=== PATIENT | female | born 1990 | race Caucasian/White ===

== ENCOUNTER 2019-11-18 19:46 | Emergency (ER) | payer BC, OTHER ==
--- NOTE | 2019-11-18 20:18 | EDM.PDOC ---
ED HPI GENERAL MEDICAL PROBLEM - General Chief Complaint: ENT Problem Stated Complaint: SORE THROAT DIFFICULTY SWALLOWING Time Seen by Provider: 11/18/19 19:47 Source of Information: Reports: Patient History Limitations: Reports: No Limitations - History of Present Illness INITIAL COMMENTS - FREE TEXT/NARRATIVE: HISTORY AND PHYSICAL: History of present illness: Patient is a 29-year-old female who presents to the ED today with concern of sore throat over the past 2 to 3 days. Patient states that she does have pain with swallowing but has been able to do so and has been able to eat and drink today. Patient states that she has felt feverish but has not checked a temperature at home and is also had a slight cough and a runny nose but these have improved but her throat pain has not according to patient. Patient denies fever, chills, chest pain, shortness of breath, or cough. Denies headache, neck stiff ness, change in vision, syncope, or near syncope. Denies nausea, vomiting, abdominal pain, diarrhea, constipation, or dysuria. Has not noted any blood in urine or stool. Patient has been eating and drinking appropriately. Review of systems: As per history of present illness and below otherwise all systems reviewed and negative. Past medical history: As per history of present illness and as reviewed below otherwise noncontributory. Surgical history: As per history of present illness and as reviewed below otherwise noncontributory. Social history: See social history for further information Family history: As per history of present illness and as reviewed below otherwise noncontributory. Physical exam: General: Patient is alert, oriented, and in no acute distress. Patient sitting comfortably on exam table. HEENT: Atraumatic, normocephalic, pupils equal and reactive bilaterally, negative for conjunctival pallor or scleral icterus, mucous membranes moist, TMs normal bilaterally, throat is moderately erythematous with small amount of white exudate on mildly enlarged but equal tonsils, uvula midline, neck supple, nontender, trachea midline. No drooling or trismus noted. No meningeal signs. No hot potato voice noted. Lungs: Clear to auscultation, breath sounds equal bilaterally, chest nontender. Heart: S1S2, regular rate and rhythm without overt murmur Abdomen: Soft, nondistended, nontender. Negative for masses or hepatosplenomegaly. Negative for costovertebral tenderness. Pelvis: Stable nontender. Genitourinary: Deferred. Rectal: Deferred. Skin: Intact, warm, dry. No lesions or rashes noted. Extremities: Atraumatic, negative for cords or calf pain. Neurovascular unremarkable. Neuro: Awake, alert, oriented. Cranial nerves II through XII unremarkable. Cerebellum unremarkable. Motor and sensory unremarkable throughout. Exam nonfocal. Notes: Patient does have a positive strep screen but no indications of abscess at this time. She is speaking in clear sentences, without trismus or drooling, and tonsils are mildly enlarged but equal and uvula midline. She does remain tachycardic around 120s but declines any therapeutics or further diagnostics. All risks vs benefits discussed with patient and expresses understanding. Signs and symptoms that would prompt return to the ED were thoroughly discussed with patient and expresses understanding. Discussed importance for follow-up with a primary care provider. Voices understanding and is agreeable to plan of care. Denies any further questions or concerns at this time. Diagnostics: COVID-19, Strep Therapeutics: None Prescription: Amoxicillin Impression: Strep pharyngitis Plan: 1. Take medication as prescribed. You can alternate ibuprofen and Tylenol as directed for pain and discomfort. 2. Follow-up with a primary care provider as discussed. Return to the ED as needed and as discussed. Definitive disposition and diagnosis as appropriate pending reevaluation and review of above. 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: Musculoskeletal History: Reports: None Neurological History: Reports: None Psychiatric History: Reports: None Endocrine/Metabolic History: Reports: None Hematologic History: Reports: None Immunologic History: Reports: None Oncologic (Cancer) History: Reports: None Dermatologic History: Reports: None - Infectious Disease History Infectious Disease History: Reports: None - Past Surgical History Head Surgeries/Procedures: Reports: None Female Surgical History: Reports: Section Social & Family History - Tobacco Use Smoking Status *Q: Never Smoker - Recreational Drug Use Recreational Drug Use: No ED ROS GENERAL - Review of Systems Review Of Systems: Comprehensive ROS is negative, except as noted in HPI. ED EXAM, GENERAL - Physical Exam Exam: See Below (see dictation) Course - Vital Signs Last Recorded V/S: Last Vital Signs Temp 99.8 F 11/18/19 20:06 Pulse 144 H 11/18/19 20:06 Resp 26 H 11/18/19 20:06 BP 122/84 11/18/19 20:06 Pulse Ox 96 11/18/19 20:06 - Orders/Labs/Meds Labs: Laboratory Tests 11/18/19 Range/Units 20:20 COVID-19 (ANJEL) NEGATIVE (NEGATIVE) Departure - Departure Time of Disposition: 20:55 Disposition: Home, Self-Care 01 Clinical Impression: Strep pharyngitis - Discharge Information Prescriptions: Amoxicillin 1,000 mg PO DAILY 10 Days #20 tablet Instructions: Strep Throat, Adult, [id number] Referrals: PCP,None [Primary Care Provider] - Forms: ED Department Discharge Additional Instructions: The following information is given to patients seen in the emergency department who are being discharged to home. This information is to outline your options for follow-up care. We provide all patients seen in our emergency department with a follow-up referral. The need for follow-up, as well as the timing and circumstances, are variable depending upon the specifics of your emergency department visit. If you don't have a primary care physician on staff, we will provide you with a referral. We always advise you to contact your personal physician following an emergency department visit to inform them of the circumstance of the visit and for follow-up with them and/or the need for any referrals to a consulting specialist. The emergency department will also refer you to a specialist when appropriate. This referral assures that you have the opportunity for follow-up care with a specialist. All of these measure are taken in an effort to provide you with optimal care, which includes your follow-up. Under all circumstances we always encourage you to contact your private physician who remains a resource for coordinating your care. When calling for follow-up care, please make the office aware that this follow-up is from your recent emergency room visit. If for any reason you are refused follow-up, please contact the [facility] Emergency Department at and asked to speak to the emergency department charge nurse. [facility] [address] [place] [address] [facility] [address] [place] [id number] 1. Take medication as prescribed. You can alternate ibuprofen and Tylenol as directed for pain and discomfort. 2. Follow-up with a primary care provider as discussed. Return to the ED as needed and as discussed. Sepsis Event Note (ED) - Evaluation Sepsis Screening Result: No Definite Risk - Focused Exam Vital Signs: Vital Signs Temp Pulse Resp BP Pulse Ox 11/18/19 20:06 99.8 F 144 H 26 H 122/84 96
== END 2019-11-18 21:30 | disposition home or self-care (01) ==
LOC: MW.ED 19:46
DX: J02.0 Streptococcal pharyngitis (principal); J45.909 Unspecified asthma, uncomplicated; Z20.828 Contact with and (suspected) exposure to other viral communicable diseases
CPT/HCPCS: 87880-QW; 99283; U0002

== ENCOUNTER 2020-03-20 09:31 | Inpatient (IN) | payer BC ==
[2020-03-20] MEDS ORDERED: Oxytocin/0.9 % Sodium Chloride 30 UNIT/500 ML BAG IV SCH (09:45)
[2020-03-20] MEDS ORDERED: Sodium Chloride 0.9% 2.5 ML Syringe FLUSH PRN (09:45)
[2020-03-20] MEDS ORDERED: Citric Acid/Sodium Citrate Solution 30 ML Cup PO ONE (09:45)
[2020-03-20] MEDS ORDERED: Sodium Chloride 0.9% 10 ML Syringe FLUSH PRN (09:45)
[2020-03-20] MEDS ORDERED: Sodium Chloride 0.9% 10 ML SDV IV PRN (09:45)
[2020-03-20] MEDS ORDERED: Lactated Ringers 1,000 ML IV SCH ×2 (09:45→12:15)
--- NOTE | 2020-03-20 10:08 | PCM.PREANE ---
Preanesthetic Assessment - Procedure Proposed Procedure: (repeat). Admitted dilated to 5cm. All questions answered and concerns addressed, explained spinal risks/benefits/alternatives/anesthesia coverage discussed. consent signed with RN witness. - Anesthesia/Transfusion/Family Hx Anesthesia History: Prior Anesthesia Without Reaction (Denies previous surgery other than CS. Spinal anesthetic with no complications (other than shivering) per pt.) Family History of Anesthesia Reaction: No Transfusion History: No Prior Transfusion(s) Additional History: History of asthma. Mild and rare per pt. Primarily exercise, and occasionally stress-induced. - Review of Systems General: No Symptoms Pulmonary: No Symptoms Cardiovascular: No Symptoms Gastrointestinal: No Symptoms Neurological: No Symptoms Other: Reports: None - Physical Assessment NPO Status Date: 03/19/20 NPO Status Time: 22:00 ASA Class: 2E Mental Status: Alert & Oriented x3 Dentition: Reports: Normal Dentition Thyro-Mental Finger Breadths: 3 Mouth Opening Finger Breadths: 3 ROM/Head Extension: Full Lungs: Normal Respiratory Effort Cardiovascular: Regular Rate, Regular Rhythm - Allergies Allergies/Adverse Reactions: Allergies Allergy/AdvReac Type Severity Reaction Status Date / Time No Known Allergies Allergy Verified 11/18/19 20:09 - Acknowledgements Anesthesia Type Planned: Spinal Pt an Appropriate Candidate for the Planned Anesthesia: Yes Alternatives and Risks of Anesthesia Discussed w Pt/Guardian: Yes Pt/Guardian Understands and Agrees with Anesthesia Plan: Yes PreAnesthesia Questionnaire - Past Health History Medical/Surgical History: Denies Medical/Surgical History HEENT History: Reports: None Cardiovascular History: Reports: None Respiratory History: Reports: Asthma Gastrointestinal History: Reports: None Genitourinary History: Reports: None 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: Musculoskeletal History: Reports: None Neurological History: Reports: None Psychiatric History: Reports: None Endocrine/Metabolic History: Reports: None Hematologic History: Reports: None Immunologic History: Reports: None Oncologic (Cancer) History: Reports: None Dermatologic History: Reports: None - Infectious Disease History Infectious Disease History: Reports: None - Past Surgical History Head Surgeries/Procedures: Reports: None Female Surgical History: Reports: Section - HOME MEDS Home Medications: Home Meds Amoxicillin 1,000 mg PO DAILY 10 Days #20 tablet 11/18/19 [Rx] - CURRENT (IN HOUSE) MEDS Current Meds: Current Medications Oxytocin/Sodium Chloride (Oxytocin 30 Unit/500 Ml-Ns) 30 unit in 500 mls @ 250 mls/hr IV TITRATE VIKTOR Lactated Ringer's (Ringers, Lactated) 1,000 mls @ 500 mls/hr IV BOLUS VIKTOR Sodium Chloride (Saline Flush) 10 ml FLUSH ASDIRECTED PRN PRN Reason: Keep Vein Open Sodium Chloride (Saline Flush) 2.5 ml FLUSH ASDIRECTED PRN PRN Reason: Keep Vein Open Sodium Chloride (Normal Saline) 10 ml IV ASDIRECTED PRN PRN Reason: IV Use Discontinued Medications Citric Acid/Sodium Citrate (Bicitra Solution) 30 ml PO ONETIME ONE Stop: 03/20/20 09:46
[2020-03-20] MEDS ORDERED: ceFAZolin/Dextrose,Iso-Osmotic 2 GM/50 ML Duplex Bag IV ONE (10:12)
[2020-03-20] MEDS ORDERED: Morphine PF 10 MG/10 ML SDV ONE (10:24)
[2020-03-20] MEDS ORDERED: Propofol 200 MG/20 ML SDV ONE (10:33)
[2020-03-20] MEDS ORDERED: fentaNYL 100 MCG/2 ML SDV ONE (10:49)
[2020-03-20] MEDS ORDERED: Sugammadex Sodium 200 MG/2 ML VIAL ONE (10:51)
[2020-03-20] MEDS ORDERED: HYDROmorphone 2 MG/ML Syringe ONE ×2 (11:04→11:24)
[2020-03-20] MEDS ORDERED: Midazolam 1 MG/ML 2 ML SDV ONE (11:24)
[2020-03-20] MEDS ORDERED: Ketorolac 30 MG/ML SDV ONE (11:51)
[2020-03-20] MEDS ORDERED: Tranexamic Acid 1,000 MG in Sodium Chloride 0.9% 100 ML IV PRN (12:12)
[2020-03-20] MEDS ORDERED: Bisacodyl 10 MG Supp RECTAL PRN (12:12)
[2020-03-20] MEDS ORDERED: Ondansetron 4 MG/2 ML SDV IVPUSH PRN (12:12)
[2020-03-20] MEDS ORDERED: diphenhydrAMINE 50 MG/ML SDV IVPUSH PRN (12:12)
[2020-03-20] MEDS ORDERED: Methylergonovine 0.2 MG/1 ML Amp IM PRN (12:12)
[2020-03-20] MEDS ORDERED: Misoprostol 200 MCG Tab RECTAL PRN (12:12)
[2020-03-20] MEDS ORDERED: Lanolin 100% Cream 7 GM Tube TOP PRN (12:12)
[2020-03-20] MEDS ORDERED: Oxytocin 10 Units/1 ML SDV IM PRN (12:12)
[2020-03-20] MEDS ORDERED: Oxytocin/Lactated Ringers 30 UNIT/500 ML BAG IV SCH (12:15)
[2020-03-20] MEDS ORDERED: Morphine Sulfate in 0.9 % NaCl 50 MG/50 ML PCA Bag IV SCH (12:15)
--- NOTE | 2020-03-20 12:21 | PCM.POSTAN ---
POST ANESTHESIA ASSESSMENT - MENTAL STATUS Mental Status: Alert, Oriented - VITAL SIGNS Vital Signs: Last Vital Signs Temp 37.2 C 03/20/20 11:30 Pulse 100 03/20/20 12:11 Resp 15 03/20/20 12:11 BP 127/68 03/20/20 12:11 Pulse Ox 96 03/20/20 12:11 - RESPIRATORY Respiratory Status: Respiratory Rate WNL, Airway Patent, O2 Saturation Stable - CARDIOVASCULAR CV Status: Pulse Rate WNL, Blood Pressure Stable - GASTROINTESTINAL GI Status: No Symptoms Free Text/Narrative:: Denies nausea - PAIN Pain Score: 2 (Reports satisfactory pain control) - POST OP HYDRATION Hydration Status: Adequate & Stable - OBSERVATIONS Free Text/Narrative:: Talking with friend, reports feeling comfortable, VSS. Stable for transfer from PACU.
--- NOTE | 2020-03-20 12:24 | PCM.OPNOTE ---
- General Post-Op/Procedure Note Date of Surgery/Procedure: 03/20/20 Operative Procedure(s): repeat low transverse Findings: liveborn male 8/9 weight 4380, normal pelvis. Pre Op Diagnosis: no care, term , SROM, labor, malpresentation Post-Op Diagnosis: Same Anesthesia Technique: General ET Tube Primary Surgeon: Kathy Bowling Anesthesia Provider: Ruslan Anderson Under Cutter: Krista Rodriguez Pathology: none Fluid Replacement, Intraop: 1,400 Output, Urine Amount: 40 EBL in mLs: 1,000 Complications: None Known Condition: Good Free Text/Narrative:: Intake & Output 03/19/20 03/20/20 03/20/20 22:59 06:59 14:59 Intake Total 1700 Output Total 75 Balance 1625
[2020-03-20] MEDS ORDERED: Morphine 50 MG in Sodium Chloride 0.9% 37.5 ML IV SCH (12:45)
--- NOTE | 2020-03-20 13:59 | HP ---
DATE OF : 1990 PRIMARY CARE PHYSICIAN: None PCP CHIEF COMPLAINT: Contractions, rupture of membranes. HISTORY: This is a 29-year-old female. She is G2, P1-0-0-1. She presents with no care, spontaneous rupture of membranes. She is aware that she is , but she states that she has been afraid to admit it. She does not want to keep the baby. She wants to give it up for adoption. She does not want to see the baby at the time of delivery. She believes her last menstrual period was either in April or May. She feels that she is full term. There is no involvement of father of the baby, and she reports regular painful contractions every 4 to 6 minutes. She has had no care; therefore, no group B strep is available. She denies fever, chills, nausea, vomiting, headache. PAST MEDICAL HISTORY: Significant for mild asthma. No medication. PAST SURGICAL HISTORY: x1. ALLERGIES: None known. MEDICATIONS: None. SOCIAL HISTORY: She is single. Sexually active. She works at [employer]. She denies use of tobacco, alcohol, or street drugs. REVIEW OF SYSTEMS: CONSTITUTIONAL: Negative for headache, visual changes. DERMATOLOGIC: Negative. CARDIOVASCULAR: Negative. PULMONARY: Negative. RHEUMATOLOGIC: Negative. GASTROINTESTINAL: Negative. GENITOURINARY: Positive per HPI. PHYSICAL EXAMINATION: VITAL SIGNS: There is no blood pressure on the chart yet, however, she is afebrile. Pulse of 100. heart tones are 130s, moderate variability, accelerations present, no decelerations. Contractions are every 3 to 4 minutes. GENERAL: She is alert and oriented. She gives a good history. She seems to have normal mental status and she clearly states that she does not want to see the baby. NECK: Supple without lymphadenopathy or thyromegaly. LUNGS: Clear bilaterally. CARDIOVASCULAR: Regular rate without murmur. ABDOMEN: Soft, gravid, nontender. Estimated weight of 3800 g. EXTREMITIES: Trace edema. VAGINAL: 6 cm, 80%, breech presentation. Appears sagar breech on sono, but the presenting part is more sacrum or lower back. ASSESSMENT AND PLAN: Suspected term . No care. No group B streptococcus status. We will obtain group B streptococcus culture. We will proceed with urgent section due to breech presentation, active spontaneous labor. Anesthesia has been notified. Peds have been notified. Nursing channel supervisor has been notified. The patient is consented for section with risks discussed including bleeding; infection; injury to bowel, bladder, blood vessels, ureters, or other organs; risk of thromboembolic event; and risk of anesthesia. Understanding all these risks, she does desire to proceed. CARLOS KIM /[id number]
[2020-03-20 14:40] LABS: HIV12 AG/AB 4TH GEN W/REFLEX 0.1 INDEX (<1.0)
--- NOTE | 2020-03-20 15:44 | OR ---
SURGEON: Kathy Bowling M.D. DATE OF PROCEDURE: 03/20/2020 PREOPERATIVE DIAGNOSES: No care, suspected term , malpresentation, spontaneous rupture of membranes, active labor, and prior section. POSTOPERATIVE DIAGNOSES: No care, suspected term , malpresentation, spontaneous rupture of membranes, active labor, and prior section. PROCEDURE: Repeat low-transverse section. PRIMARY SURGEON: Kathy Bowling M.D. ANESTHESIA: General endotracheal. FLUIDS: 1400 mL of crystalloid. ESTIMATED BLOOD LOSS: 1000 mL. URINE OUTPUT: 40 mL. FINDINGS: Liveborn male, scores of 8 and 9, weighing 4380 g. Normal-appearing uterus, tubes, and ovaries. COMPLICATIONS: None known. DISPOSITION: Stable to Recovery. BRIEF HISTORY: This is a 29-year-old female. She is G2, P1-0-0-1. She presents having had no care with spontaneous rupture of membranes. She, herself, knew that she was . She reports LMP of approximately late April or May 2019. Father of the baby is not involved. She did not admit to her family or friends that she was and due to her body habitus, although she is clearly on my exam, she "hid it from her family." She did not have any care, but she reports good movement. She had spontaneous rupture of membranes today. She has had a prior delivery. Upon initial evaluation by the nursing staff, she was reported to be breech, and therefore, I came immediately to Labor and Delivery where I confirmed a non-cephalic presentation. However, the presenting part was not a sagar breech, and I was very concerned about the possibility of cord prolapse. I did call Dr. Anderson, the anesthesiologist stone rigger. Nursing hot dip plating supervisor was notified, and the OR crew was mobilized very quickly. heart tones were normal. She had normal blood pressure. She was 6 cm to 7 cm dilated. Therefore, I did request that we move quickly towards delivery. However, multiple nurses attempted to place an IV. Finally, the anesthesiologist got a single 24-gauge IV in place. The nurses had been gathering the vein finder and ultrasound equipment, also intraosseous access equipment was available; however, with the 24-gauge, the anesthesiologist felt comfortable proceeding to , and attempt was initially made for spinal; however, the patient was a little bit uncooperative as well as with the patient being 6 cm to 7 cm, I did request that we proceed with general anesthetic. Risks of the surgery had been discussed with the patient including bleeding; infection; injury to bowel, bladder, blood vessels, ureters, or other organs; risk of thromboembolic event; and risk of anesthesia. Understanding these risks, she does desire to proceed. DESCRIPTION OF PROCEDURE: With the patient in the left tilt position, the Siu catheter had been placed. The abdomen was prepped with Betadine and draped in the usual fashion for abdominal surgery. SCDs were placed and were active, and at this point, general endotracheal intubation was performed. Immediately upon intubation, a transverse curvilinear incision was made over the site of prior scar, carried through the subcutaneous tissue to the fascia, which was scored transversely in the midline. The fascial incision was extended laterally using curved Love scissors. Note that patient did receive Ancef prior to induction of anesthesia. The fascia was from the rectus muscle, and the rectus muscles were bluntly in midline using sharp and blunt dissection. The extra-large Brandon retractor was placed, and the visceroperitoneum over the lower uterine segment was incised to develop an adequate bladder flap. A transverse curvilinear incision was made over the lower uterine segment. I was able to manipulate the back so that the fetus was sacrum in the right lower quadrant, back down, and head in the left upper quadrant. I was able to slightly rotate the fetus forward and present with the breech presentation, turned to sacrum anterior, with fundal pressure delivered the breech, swept the arms, and flexed the head and delivering a very large baby by breech presentation. The infant was bulb suctioned by nose and mouth. Immediately, the cord was clamped x2 and cut and handed to the phototypesetter operator in attendance at delivery. The was a liveborn male, scores of 8 and 9, weighing 4380 g. Cord blood was collected for cord ABGs as well as routine cord blood sampling. Pitocin was initiated after delivery of the infant, and the placenta was delivered by manual extraction. The uterus was cleaned with a dry laparotomy tape. The cervix was opened with ring forceps. The uterine incision was closed with a running lock suture of 0 Polysorb, followed by an imbricating layer of 0 Polysorb, and followed by 2 [id number] sutures of 0 Polysorb for complete hemostasis. The tubes and ovaries appeared normal. The paracolic gutters and posterior cul-de-sac were cleaned with a wet laparotomy tape. The uterine incision was inspected and remained hemostatic. Therefore, the Brandon O retractor was removed. Final inspection using a bladder blade was performed with continued hemostasis of the incision. Therefore, the rectus muscle and peritoneum were loosely approximated in the midline using a running mattress suture of 0 Polysorb. The posterior aspect of the fascia was inspected. Any areas of bleeding that were noted, were cauterized. The subcutaneous tissue was copiously irrigated. Any areas of bleeding that were noted, were cauterized after closure of the fascia with a running suture of 0 Polysorb. The deep subcutaneous tissue was reapproximated using 3-0 plain and the skin was closed with a running subcuticular suture of 3-0 Monocryl. The silver infiltrated cloth was placed over the incision followed by placement of the ELVIS dressing with suction. At this point, I did perform a fundal massage and another approximately 500 mL was expelled. Therefore, while the surgical estimated blood loss was 500, I felt that the total blood loss was approximately 1000 and Anesthesia concurs with this. Final sponge, needle, and instrument counts were reported as correct. There were no known complications. Mother was transferred to Recovery in good condition. She requests no contact with the infant who is sent to the nursery, and Burlap Worker consult will be obtained. Full labs were obtained as well as a group B strep culture as she was ruptured at the time of delivery. CARLOS / JULIO /[id number]
[2020-03-20] MEDS: Ketorolac 30 MG/ML SDV IVPUSH SCH (18:35)
--- NOTE | 2020-03-21 07:05 | PCM48HPAN ---
Post Anesthesia Note - EVALUATION WITHIN 48HRS OF ANESTHETIC Vital Signs in Normal Range: Yes Patient Participated in Evaluation: Yes Respiratory Function Stable: Yes Airway Patent: Yes Cardiovascular Function Stable: Yes Hydration Status Stable: Yes Pain Control Satisfactory: Yes Nausea and Vomiting Control Satisfactory: Yes Mental Status Recovered: Yes Vital Signs: Last Vital Signs Temp 35.9 C L 03/21/20 05:09 Pulse 113 H 03/21/20 05:09 Resp 18 03/21/20 05:09 BP 122/58 L 03/21/20 05:09 Pulse Ox 94 L 03/21/20 05:09
[2020-03-21] MEDS: Docusate Sodium 100 MG Cap PO SCH ×3 (08:13→21:30)
[2020-03-21] MEDS: Ketorolac 30 MG/ML SDV IVPUSH SCH ×3 (08:14→14:18)
--- NOTE | 2020-03-21 09:53 | PCM.PNPP ---
- General Info Date of Service: 03/21/20 Functional Status: Reports: Pain Controlled, Tolerating Diet, Ambulating, Urinating - Review of Systems General: Reports: No Symptoms HEENT: Reports: No Symptoms Pulmonary: Reports: No Symptoms Cardiovascular: Reports: No Symptoms Gastrointestinal: Reports: No Symptoms Genitourinary: Reports: No Symptoms Musculoskeletal: Reports: No Symptoms Skin: Reports: No Symptoms Neurological: Reports: No Symptoms Psychiatric: Reports: No Symptoms - Patient Data Vital Signs - Most Recent: Last Vital Signs Temp 36.4 C 03/21/20 07:31 Pulse 129 H 03/21/20 07:31 Resp 18 03/21/20 07:31 BP 133/67 03/21/20 07:31 Pulse Ox 100 03/21/20 07:31 I&O - Last 24 Hours: Intake & Output 03/20/20 03/21/20 03/21/20 22:59 06:59 14:59 Intake Total 1997 Output Total 325 500 Balance -325 1498 Lab Results - Last 24 Hours: Laboratory Results - last 24 hr 03/20/20 03/20/20 03/20/20 Range/Units 09:35 09:40 10:20 WBC 18.94 H (4.0-11.0) K/uL RBC 4.75 (4.30-5.90) M/uL Hgb 12.6 (12.0-16.0) g/dL Hct 40.0 (36.0-46.0) % MCV 84.2 (80.0-98.0) fL MCH 26.5 L (27.0-32.0) pg MCHC 31.5 (31.0-37.0) g/dL RDW Std Deviation 48.8 (28.0-62.0) fl RDW Coeff of Ana 16 H (11.0-15.0) % Plt Count 290 (150-400) K/uL MPV 10.40 (7.40-12.00) fL Nucleated RBC % 0.0 /100WBC Nucleated RBCs # 0 K/uL Cord ABG pH (7.18-7.38) Cord ABG Base Excess (-10--2) Urine Color Urine Appearance Urine pH (5.0-8.0) Ur Specific Troy (1.001-1.035) Urine Protein (NEGATIVE) mg/dL Urine Glucose (UA) (NEGATIVE) mg/dL Urine Ketones (NEGATIVE) mg/dL Urine Occult Blood (NEGATIVE) Urine Nitrite (NEGATIVE) Urine Bilirubin (NEGATIVE) Urine Ictotest Urine Urobilinogen (<2.0) EU/dL Ur Leukocyte Esterase (NEGATIVE) Urine RBC (0-2/HPF) Urine WBC (0-5/HPF) Ur Epithelial Cells (NONE-FEW) Amorphous Sediment (NEGATIVE) Urine Bacteria (NEGATIVE) Urine Mucus (NONE-MOD) Membrane Rupture POSITIVE Urine Opiates Screen (NEGATIVE) Ur Oxycodone Screen (NEGATIVE) Urine Methadone Screen (NEGATIVE) Ur Barbiturates Screen (NEGATIVE) Ur Phencyclidine Scrn (NEGATIVE) Ur Amphetamine Screen (NEGATIVE) U Methamphetamines Scrn (NEGATIVE) U Benzodiazepines Scrn (NEGATIVE) U Cocaine Metab Screen (NEGATIVE) U Marijuana (THC) Screen (NEGATIVE) Hep Bs Antigen Index (<1.0) INDEX Hep C Ab Index (YOSVANY) (<0.8) INDEX HIV 1&2 Ag/Ab, 4th Gen (<1.0) INDEX Rubella IgG Ab Index IU/mL SARS-CoV-2 RNA (ANJEL) NEGATIVE (NEGATIVE) Blood Type Antibody Screen 03/20/20 03/20/20 03/20/20 Range/Units 10:20 10:42 13:00 WBC (4.0-11.0) K/uL RBC (4.30-5.90) M/uL Hgb (12.0-16.0) g/dL Hct (36.0-46.0) % MCV (80.0-98.0) fL MCH (27.0-32.0) pg MCHC (31.0-37.0) g/dL RDW Std Deviation (28.0-62.0) fl RDW Coeff of Ana (11.0-15.0) % Plt Count (150-400) K/uL MPV (7.40-12.00) fL Nucleated RBC % /100WBC Nucleated RBCs # K/uL Cord ABG pH 7.234 (7.18-7.38) Cord ABG Base Excess 0 H (-10--2) Urine Color Urine Appearance Urine pH (5.0-8.0) Ur Specific Troy (1.001-1.035) Urine Protein (NEGATIVE) mg/dL Urine Glucose (UA) (NEGATIVE) mg/dL Urine Ketones (NEGATIVE) mg/dL Urine Occult Blood (NEGATIVE) Urine Nitrite (NEGATIVE) Urine Bilirubin (NEGATIVE) Urine Ictotest Urine Urobilinogen (<2.0) EU/dL Ur Leukocyte Esterase (NEGATIVE) Urine RBC (0-2/HPF) Urine WBC (0-5/HPF) Ur Epithelial Cells (NONE-FEW) Amorphous Sediment (NEGATIVE) Urine Bacteria (NEGATIVE) Urine Mucus (NONE-MOD) Membrane Rupture Urine Opiates Screen (NEGATIVE) Ur Oxycodone Screen (NEGATIVE) Urine Methadone Screen (NEGATIVE) Ur Barbiturates Screen (NEGATIVE) Ur Phencyclidine Scrn (NEGATIVE) Ur Amphetamine Screen (NEGATIVE) U Methamphetamines Scrn (NEGATIVE) U Benzodiazepines Scrn (NEGATIVE) U Cocaine Metab Screen (NEGATIVE) U Marijuana (THC) Screen (NEGATIVE) Hep Bs Antigen Index 0.2 (<1.0) INDEX Hep C Ab Index (YOSVANY) 0.15 (<0.8) INDEX HIV 1&2 Ag/Ab, 4th Gen 0.1 (<1.0) INDEX Rubella IgG Ab Index 40.9 IU/mL SARS-CoV-2 RNA (ANJEL) (NEGATIVE) Blood Type O NEGATIVE Antibody Screen NEGATIVE 03/20/20 03/20/20 03/20/20 Range/Units 13:00 13:02 13:02 WBC (4.0-11.0) K/uL RBC (4.30-5.90) M/uL Hgb 11.6 L (12.0-16.0) g/dL Hct 37.0 (36.0-46.0) % MCV (80.0-98.0) fL MCH (27.0-32.0) pg MCHC (31.0-37.0) g/dL RDW Std Deviation (28.0-62.0) fl RDW Coeff of Ana (11.0-15.0) % Plt Count (150-400) K/uL MPV (7.40-12.00) fL Nucleated RBC % /100WBC Nucleated RBCs # K/uL Cord ABG pH (7.18-7.38) Cord ABG Base Excess (-10--2) Urine Color YELLOW Urine Appearance SLT CLOUDY Urine pH 6.0 (5.0-8.0) Ur Specific [place] >= 1.030 (1.001-1.035) Urine Protein 30 H (NEGATIVE) mg/dL Urine Glucose (UA) NEGATIVE (NEGATIVE) mg/dL Urine Ketones 15 H (NEGATIVE) mg/dL Urine Occult Blood LARGE H (NEGATIVE) Urine Nitrite NEGATIVE (NEGATIVE) Urine Bilirubin SMALL H (NEGATIVE) Urine Ictotest NEGATIVE Urine Urobilinogen 0.2 (<2.0) EU/dL Ur Leukocyte Esterase NEGATIVE (NEGATIVE) Urine RBC 10-12 (0-2/HPF) Urine WBC 0-2 (0-5/HPF) Ur Epithelial Cells OCCASIONAL (NONE-FEW) Amorphous Sediment MODERATE (NEGATIVE) Urine Bacteria FEW (NEGATIVE) Urine Mucus FEW (NONE-MOD) Membrane Rupture Urine Opiates Screen POSITIVE (NEGATIVE) Ur Oxycodone Screen NEGATIVE (NEGATIVE) Urine Methadone Screen NEGATIVE (NEGATIVE) Ur Barbiturates Screen NEGATIVE (NEGATIVE) Ur Phencyclidine Scrn NEGATIVE (NEGATIVE) Ur Amphetamine Screen NEGATIVE (NEGATIVE) U Methamphetamines Scrn NEGATIVE (NEGATIVE) U Benzodiazepines Scrn NEGATIVE (NEGATIVE) U Cocaine Metab Screen NEGATIVE (NEGATIVE) U Marijuana (THC) Screen NEGATIVE (NEGATIVE) Hep Bs Antigen Index (<1.0) INDEX Hep C Ab Index (YOSVANY) (<0.8) INDEX HIV 1&2 Ag/Ab, 4th Gen (<1.0) INDEX Rubella IgG Ab Index IU/mL SARS-CoV-2 RNA (ANJEL) (NEGATIVE) Blood Type Antibody Screen Med Orders - Current: Current Medications Bisacodyl (Dulcolax) 10 mg RECTAL ONETIME PRN PRN Reason: Constipation Diphenhydramine HCl (Benadryl) 25 mg IVPUSH Q6H PRN PRN Reason: Itching or Nausea Docusate Sodium (Colace) 100 mg PO BID [facility] Last Admin: 03/21/20 08:13 Dose: 100 mg Documented by: Emollient Ointment (Lansinoh Hpa) 0 gm TOP ASDIRECTED PRN PRN Reason: Sore Nipples Oxytocin/Sodium Chloride (Oxytocin 30 Unit/500 Ml-Ns) 30 unit in 500 mls @ 250 mls/hr IV TITRATE [facility] Lactated Ringer's (Ringers, Lactated) 1,000 mls @ 500 mls/hr IV BOLUS [facility] Lactated Ringer's (Ringers, Lactated) 1,000 mls @ 125 mls/hr IV ASDIRECTED [facility] Oxytocin/Lactated Ringer's (Pitocin In Lr 30 Units/500 Ml) 30 unit in 500 mls @ 999 mls/hr IV TITRATE [facility]; Protocol Tranexamic Acid 1,000 mg/ (Sodium Chloride) 110 mls @ 660 mls/hr IV ONETIME PRN PRN Reason: Bleeding Morphine Sulfate 50 mg/ Sodium (Chloride) 50 mls @ 1 mls/hr IV ASDIRECTED [facility]; Protocol Stop: 03/21/20 14:00 Last Admin: 03/20/20 13:57 Dose: 1 mg/hr, 1 mls/hr Documented by: Ibuprofen (Motrin) 800 mg PO Q8H PRN PRN Reason: mild pain or fever Ketorolac Tromethamine (Toradol) 30 mg IVPUSH Q6H [facility] Stop: 03/21/20 12:16 Last Admin: 03/21/20 08:14 Dose: 30 mg Documented by: Methylergonovine Maleate (Methergine) 0.2 mg IM ONETIME PRN PRN Reason: Excessive Vaginal Bleeding Misoprostol (Cytotec) 1,000 mcg RECTAL ONETIME PRN PRN Reason: excessive bleeding Ondansetron HCl (Zofran) 4 mg IVPUSH Q4H PRN PRN Reason: Nausea/Vomiting Oxycodone/Acetaminophen (Percocet 325-5 Mg) 1 tab PO Q4H PRN PRN Reason: Pain (moderate 4-6) Oxycodone/Acetaminophen (Percocet 325-5 Mg) 2 tab PO Q4H PRN PRN Reason: Pain (moderate 4-6) Oxytocin (Pitocin) 10 unit IM ASDIRECTED PRN PRN Reason: Excessive Vaginal Bleeding Sodium Chloride (Saline Flush) 10 ml FLUSH ASDIRECTED PRN PRN Reason: Keep Vein Open Sodium Chloride (Saline Flush) 2.5 ml FLUSH ASDIRECTED PRN PRN Reason: Keep Vein Open Sodium Chloride (Normal Saline) 10 ml IV ASDIRECTED PRN PRN Reason: IV Use Discontinued Medications Cefazolin Sodium/Dextrose (Ancef) Confirm Administered Dose 2 gm IV .STK-MED ONE Stop: 03/20/20 10:13 Citric Acid/Sodium Citrate (Bicitra Solution) 30 ml PO ONETIME ONE Stop: 03/20/20 09:46 Fentanyl (Sublimaze) Confirm Administered Dose 100 mcg .ROUTE .STK-MED ONE Stop: 03/20/20 10:50 Hydromorphone HCl (Dilaudid) Confirm Administered Dose 2 mg .ROUTE .STK-MED ONE Stop: 03/20/20 11:05 Hydromorphone HCl (Dilaudid) Confirm Administered Dose 2 mg .ROUTE .STK-MED ONE Stop: 03/20/20 11:25 Ketorolac Tromethamine (Toradol) Confirm Administered Dose 30 mg .ROUTE .STK-MED ONE Stop: 03/20/20 11:52 Midazolam HCl (Versed 1 Mg/Ml) Confirm Administered Dose 2 mg .ROUTE .STK-MED ONE Stop: 03/20/20 11:25 Morphine Sulfate (Duramorph Pf) Confirm Administered Dose 10 mg .ROUTE .STK-MED ONE Stop: 03/20/20 10:25 Propofol (Diprivan 20 Ml) Confirm Administered Dose 200 mg .ROUTE .STK-MED ONE Stop: 03/20/20 10:34 Sugammadex Sodium (Bridion) Confirm Administered Dose 200 mg .ROUTE .STK-MED ONE Stop: 03/20/20 10:52 - Interaction Disposition, : planning to adopt out baby, 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 Support Person: Friend - Recovery Exam Fundal Tone: Firm Fundal Level: 1 Fingerbreadths Below Umbilicus Fundal Placement: Midline Lochia Amount: Small Lochia Color: Rubra/Red Perineum Description: Intact, Minimal Bruising/Swelling Episiotomy/Laceration: None Bladder Status: Indwelling Catheter in Place Urinary Elimination: Not Voiding - Exam General: Alert, Oriented Lungs: Clear to Auscultation, Normal Respiratory Effort Cardiovascular: Regular Rate, Regular Rhythm GI/Abdominal Exam: Normal Bowel Sounds, Soft, Non-Tender, No Distention, No Abnormal Bruit Extremities: Normal Inspection, Normal Range of Motion, Non-Tender. No: No Pedal Edema (trace) Skin: Warm, Dry, Intact Wound/Incisions: Dressing Dry and Intact (ELVIS dry) Neurological: No New Focal Deficit Psy/Mental Status: Alert, Normal Affect, Normal Mood - Problem List & Annotations (1) malpresentation, delivered, current hospitalization SNOMED Code(s): 08501821, 33538268, 138824065 Code(s): O32.9XX0 - MATERNAL CARE FOR MALPRESENTATION OF FETUS, UNSP, UNSP Status: Acute Current Visit: Yes (2) delivery delivered SNOMED Code(s): 622970469 Code(s): O82 - ENCOUNTER FOR DELIVERY WITHOUT INDICATION Status: Acute Current Visit: Yes (3) Previous delivery, delivered SNOMED Code(s): 582284112, 191865226 Code(s): O34.219 - MATERNAL CARE FOR UNSP TYPE SCAR FROM PREVIOUS DEL Status: Acute Current Visit: Yes (4) No care in current SNOMED Code(s): 803803909 Code(s): O09.30 - SUPRVSN OF PREG W INSUFFICIENT ANTENAT CARE, UNSP TRIMESTER Status: Acute Current Visit: Yes - Problem List Review Problem List Initiated/Reviewed/Updated: Yes - My Orders Last 24 Hours: My Active Orders 03/20/20 09:45 Notify Provider Vital Signs [RC] PRN Up ad Kathleen [RC] ASDIRECTED Vital Signs [RC] PER UNIT ROUTINE Lactated Ringers [Ringers, Lactated] 1,000 ml IV BOLUS Oxytocin/0.9 % Sodium Chloride [Oxytocin 30 Unit/500 ML-NS] 30 unit in 500 ml IV TITRATE Sodium Chloride 0.9% [Normal Saline] 10 ml IV ASDIRECTED PRN Sodium Chloride 0.9% [Saline Flush] 10 ml FLUSH ASDIRECTED PRN Sodium Chloride 0.9% [Saline Flush] 2.5 ml FLUSH ASDIRECTED PRN Peripheral IV Insertion Adult [OM.PC] Routine Schedule Procedure [COMM] Per Unit Routine Resuscitation Status Routine 03/20/20 10:05 GROUP B STREP BY PCR [MOLEC] Routine 03/20/20 12:12 Patient Status [ADT] Routine Ambulate [RC] PER UNIT ROUTINE Antiembolic Devices [RC] PER UNIT ROUTINE Communication Order [RC] PER UNIT ROUTINE Communication Order [RC] PER UNIT ROUTINE Communication Order [RC] Per Unit Routine Intake and Output [RC] Q12H May Shower [RC] ASDIRECTED RT Incentive Spirometry [RC] Q2HWA Vital Signs [RC] PER UNIT ROUTINE Acetaminophen/oxyCODONE [Percocet 325-5 MG] 1 tab PO Q4H PRN Acetaminophen/oxyCODONE [Percocet 325-5 MG] 2 tab PO Q4H PRN Lanolin [Lansinoh HPA] See Dose Instructions TOP ASDIRECTED PRN Methylergonovine [Methergine] 0.2 mg IM ONETIME PRN Ondansetron [Zofran] 4 mg IVPUSH Q4H PRN Oxytocin [Pitocin] 10 unit IM ASDIRECTED PRN Tranexamic Acid [Cyklokapron] 1,000 mg Sodium Chloride 0.9% [Normal Saline] 100 ml IV ONETIME bisacodyL [Dulcolax] 10 mg RECTAL ONETIME PRN diphenhydrAMINE [Benadryl] 25 mg IVPUSH Q6H PRN miSOPROStoL [Cytotec] 1,000 mcg RECTAL ONETIME PRN Abdominal Binder [OM.PC] Urgent Assess Lochia [WOMSER] Per Unit Routine Assess Uterine Involution [WOMSER] Per Unit Routine Breast Pump [WOMSER] Per Unit Routine Peripheral IV Discontinue [OM.PC] Routine Sequential Compression Device [OM.PC] Per Unit Routine 03/20/20 12:13 Notify Provider Intake and Out [RC] ASDIRECTED Notify Provider Vital Signs [RC] ASDIRECTED 03/20/20 12:15 Ketorolac [Toradol] 30 mg IVPUSH Q6H Lactated Ringers [Ringers, Lactated] 1,000 ml IV ASDIRECTED Oxytocin/Lactated Ringers [Pitocin in LR 30 Units/500 ML] 30 unit in 500 ml IV TITRATE 03/20/20 12:18 Consult to Case Management/Flight Security Specialist [CONS] Routine 03/20/20 12:45 Morphine 50 mg Sodium Chloride 0.9% [Normal Saline] 37.5 ml IV ASDIRECTED 03/20/20 13:00 RPR (SYPHILIS SERO) W/ RFLX [REF] Routine 03/20/20 13:02 CHLAMYDIA AND GONORRHEA BY TMA Routine 03/20/20 21:00 Docusate Sodium [Colace] 100 mg PO BID 03/21/20 Breakfast Regular Diet [DIET] 03/21/20 18:16 Ibuprofen [Motrin] 800 mg PO Q8H PRN - Assessment Assessment:: POD# 1 after repeat low transverse , GETA, SROM with labor, no care, malpresentation, plans to adopt out baby Stable, has eaten small amount Requests help with adoption process Positive opioids on drug screen secondary to pain meds during , otherwise negative UDS - Plan Plan:: manager managed backup services consult today, transition to oral pain medications, encourage ambulation, shower today.
[2020-03-21] MEDS: Acetaminophen/oxyCODONE 325-5 MG Tab PO PRN ×3 (13:16→21:30)
[2020-03-21] MEDS ORDERED: Ibuprofen 800 MG Tab PO PRN (18:16)
[2020-03-22] MEDS: Acetaminophen/oxyCODONE 325-5 MG Tab PO PRN ×3 (06:08→14:25)
[2020-03-22] MEDS ORDERED: Simethicone 80 MG Tab.Chew PO PRN (07:37)
--- NOTE | 2020-03-22 07:47 | PCM.PNPP ---
- General Info Date of Service: 03/22/20 Subjective Update: Patient reports pain not controlled the past 1-2 hours. Has passed minimal flatus. Pain radiates around abdomen. Functional Status: Reports: Tolerating Diet, Ambulating, Urinating - Review of Systems General: Reports: No Symptoms HEENT: Reports: No Symptoms Pulmonary: Reports: No Symptoms Cardiovascular: Reports: No Symptoms Gastrointestinal: Reports: Abdominal Pain Genitourinary: Reports: No Symptoms Musculoskeletal: Reports: No Symptoms Skin: Reports: No Symptoms Neurological: Reports: No Symptoms Psychiatric: Reports: No Symptoms - Patient Data Vital Signs - Most Recent: Last Vital Signs Temp 36.8 C 03/22/20 04:50 Pulse 121 H 03/22/20 04:50 Resp 13 03/22/20 04:50 BP 137/69 03/22/20 05:19 Pulse Ox 95 03/22/20 04:50 Lab Results - Last 24 Hours: Laboratory Results - last 24 hr 03/20/20 Range/Units 10:05 Group B Strep (PCR) NEGATIVE (NEGATIVE) Med Orders - Current: Current Medications Bisacodyl (Dulcolax) 10 mg RECTAL ONETIME PRN PRN Reason: Constipation Diphenhydramine HCl (Benadryl) 25 mg IVPUSH Q6H PRN PRN Reason: Itching or Nausea Docusate Sodium (Colace) 100 mg PO BID [facility] Last Admin: 03/21/20 21:00 Dose: 100 mg Documented by: Emollient Ointment (Lansinoh Hpa) 0 gm TOP ASDIRECTED PRN PRN Reason: Sore Nipples Oxytocin/Sodium Chloride (Oxytocin 30 Unit/500 Ml-Ns) 30 unit in 500 mls @ 250 mls/hr IV TITRATE [facility] Lactated Ringer's (Ringers, Lactated) 1,000 mls @ 500 mls/hr IV BOLUS [facility] Lactated Ringer's (Ringers, Lactated) 1,000 mls @ 125 mls/hr IV ASDIRECTED [facility] Oxytocin/Lactated Ringer's (Pitocin In Lr 30 Units/500 Ml) 30 unit in 500 mls @ 999 mls/hr IV TITRATE [facility]; Protocol Tranexamic Acid 1,000 mg/ (Sodium Chloride) 110 mls @ 660 mls/hr IV ONETIME PRN PRN Reason: Bleeding Ibuprofen (Motrin) 800 mg PO Q8H PRN PRN Reason: mild pain or fever Last Admin: 03/22/20 07:04 Dose: 800 mg Documented by: Methylergonovine Maleate (Methergine) 0.2 mg IM ONETIME PRN PRN Reason: Excessive Vaginal Bleeding Misoprostol (Cytotec) 1,000 mcg RECTAL ONETIME PRN PRN Reason: excessive bleeding Ondansetron HCl (Zofran) 4 mg IVPUSH Q4H PRN PRN Reason: Nausea/Vomiting Oxycodone/Acetaminophen (Percocet 325-5 Mg) 1 tab PO Q4H PRN PRN Reason: Pain (moderate 4-6) Last Admin: 03/21/20 21:30 Dose: 1 tab Documented by: Oxycodone/Acetaminophen (Percocet 325-5 Mg) 2 tab PO Q4H PRN PRN Reason: Pain (moderate 4-6) Last Admin: 03/22/20 06:08 Dose: 2 tab Documented by: Oxytocin (Pitocin) 10 unit IM ASDIRECTED PRN PRN Reason: Excessive Vaginal Bleeding Simethicone (Simethicone) 80 mg PO Q4H PRN PRN Reason: Gas Sodium Chloride (Saline Flush) 10 ml FLUSH ASDIRECTED PRN PRN Reason: Keep Vein Open Sodium Chloride (Saline Flush) 2.5 ml FLUSH ASDIRECTED PRN PRN Reason: Keep Vein Open Sodium Chloride (Normal Saline) 10 ml IV ASDIRECTED PRN PRN Reason: IV Use Discontinued Medications Cefazolin Sodium/Dextrose (Ancef) Confirm Administered Dose 2 gm IV .STK-MED ONE Stop: 03/20/20 10:13 Citric Acid/Sodium Citrate (Bicitra Solution) 30 ml PO ONETIME ONE Stop: 03/20/20 09:46 Fentanyl (Sublimaze) Confirm Administered Dose 100 mcg .ROUTE .STK-MED ONE Stop: 03/20/20 10:50 Hydromorphone HCl (Dilaudid) Confirm Administered Dose 2 mg .ROUTE .STK-MED ONE Stop: 03/20/20 11:05 Hydromorphone HCl (Dilaudid) Confirm Administered Dose 2 mg .ROUTE .STK-MED ONE Stop: 03/20/20 11:25 Morphine Sulfate 50 mg/ Sodium (Chloride) 50 mls @ 1 mls/hr IV ASDIRECTED [facility]; Protocol Stop: 03/21/20 14:00 Last Admin: 03/20/20 13:57 Dose: 1 mg/hr, 1 mls/hr Documented by: Ketorolac Tromethamine (Toradol) Confirm Administered Dose 30 mg .ROUTE .STK-MED ONE Stop: 03/20/20 11:52 Ketorolac Tromethamine (Toradol) 30 mg IVPUSH Q6H [facility] Stop: 03/21/20 12:16 Last Admin: 03/21/20 14:18 Dose: 30 mg Documented by: Midazolam HCl (Versed 1 Mg/Ml) Confirm Administered Dose 2 mg .ROUTE .STK-MED ONE Stop: 03/20/20 11:25 Morphine Sulfate (Duramorph Pf) Confirm Administered Dose 10 mg .ROUTE .STK-MED ONE Stop: 03/20/20 10:25 Propofol (Diprivan 20 Ml) Confirm Administered Dose 200 mg .ROUTE .STK-MED ONE Stop: 03/20/20 10:34 Sugammadex Sodium (Bridion) Confirm Administered Dose 200 mg .ROUTE .STK-MED ONE Stop: 03/20/20 10:52 - Interaction Infant Disposition, : planning to adopt out baby, 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 Support Person: Friend - Recovery Exam Fundal Tone: Firm Fundal Level: 1 Fingerbreadths Above Umbilicus Fundal Placement: Midline Lochia Amount: Scant Lochia Color: Rubra/Red Bladder Status: Voiding Urinary Elimination: Voided - Exam General: Alert, Oriented Neck: Supple Lungs: Normal Respiratory Effort GI/Abdominal Exam: Soft, No Distention, Tender (appropriate tenderness to palpation) Extremities: No Pedal Edema Skin: Warm, Dry, Intact Wound/Incisions: Healing Well Neurological: No New Focal Deficit Psy/Mental Status: Alert, Normal Affect, Normal Mood - Problem List & Annotations (1) delivery delivered SNOMED Code(s): 535461510 Code(s): O82 - ENCOUNTER FOR DELIVERY WITHOUT INDICATION Status: Acute Current Visit: Yes (2) malpresentation, delivered, current hospitalization SNOMED Code(s): 99346578, 29964026, 154740747 Code(s): O32.9XX0 - MATERNAL CARE FOR MALPRESENTATION OF FETUS, UNSP, UNSP Status: Acute Current Visit: Yes (3) No care in current SNOMED Code(s): 709909758 Code(s): O09.30 - SUPRVSN OF PREG W INSUFFICIENT ANTENAT CARE, UNSP TRIMESTER Status: Acute Current Visit: Yes - Problem List Review Problem List Initiated/Reviewed/Updated: Yes - My Orders Last 24 Hours: My Active Orders 03/22/20 07:37 Simethicone 80 mg PO Q4H PRN 03/22/20 07:43 Ready for Discharge [RC] PER UNIT ROUTINE - Assessment Assessment:: POD# 2 after repeat low transverse , GETA, SROM with labor, no care, malpresentation, plans to adopt out baby - Plan Plan:: Add Simethicone for gas pain. Plan to discharge home today. Reviewed discharge precautions/instructions. legal services professional has been helping with placement of baby - will enter foster care for adoption.
[2020-03-22] MEDS: Docusate Sodium 100 MG Cap PO SCH (08:03)
[2020-03-22 12:03] LABS: C.TRACHOMATIS BY TMA Negative (Negative); N.GONORRHOEAE BY TMA Negative (Negative)
== END 2020-03-22 15:10 | disposition home or self-care (01) | DRG 540 ==
LOC: MW.OBCHECK 09:31 → MW.OB 09:31 → MW.OBCHECK 09:45 → MW.OB 15:21
PROVIDERS: ADMIT Obstetrics & Gynecology; ATTEND Obstetrics & Gynecology
PROC: 10D00Z1 Extraction of Products of Conception, Low, Open Approach (ICD-10-PCS; principal; 2020-03-20)
DX: O34.211 Maternal care for low transverse scar from previous cesarean delivery (principal); Z37.0 Single live birth; Z20.828 Contact with and (suspected) exposure to other viral communicable diseases; O32.9XX0 Maternal care for malpresentation of fetus, unspecified, not applicable or unspecified; Z3A.40 40 weeks gestation of pregnancy
CPT/HCPCS: 01961; 36415; 59025; 80305-QW; 81001; 82803; 84112; 85014; 85018; 85027; 86592; 86762; 86803; 86850; 86900; 86901; 87340; 87389; 87491; 87591; 87653; A9270-GY; J0690; J1170; J1885; J2250; J2270; J2704; J3010; J3490; U0002

== ENCOUNTER 2021-10-23 18:37 | Inpatient (IN) | payer BC ==
[2021-10-23] MEDS ORDERED: Lactated Ringers 1,000 ML IV ONE (19:22)
[2021-10-23] MEDS ORDERED: Albuterol/Ipratropium 3.0-0.5 MG/3 ML Neb Soln NEB PRN (19:22)
[2021-10-23] MEDS ORDERED: Ondansetron 4 MG/2 ML SDV IVPUSH PRN ×2 (19:22→19:29)
[2021-10-23] MEDS ORDERED: Potassium Chloride 20 MEQ Tab.ER PO ONE (19:31)
[2021-10-23] MEDS: Pantoprazole 40 MG in Sodium Chloride 0.9% 10 ML IVPUSH SCH (21:35)
[2021-10-23] MEDS: Piperacillin/Tazobactam 4.5 GM in Sodium Chloride 0.9% 100 ML IV SCH (22:48)
[2021-10-23] MEDS: Morphine 2 MG/ML SYRINGE IVPUSH PRN (22:54)
[2021-10-23] MEDS: Lactated Ringers 1,000 ML IV SCH (22:58)
[2021-10-24] MEDS: Morphine 2 MG/ML SYRINGE IVPUSH PRN ×2 (02:20→08:17)
[2021-10-24 06:48] LABS: BLOOD UREA NITROGEN,BUN 8 mg/dL (7.0-18.0); CARBON DIOXIDE,CO2 25.4 mmol/L (21.0-32.0); CHLORIDE,CL 100 mmol/L (98-107); GLUCOSE RANDOM 95 mg/dL (74-106); POTASSIUM,K 3.3 mmol/L (3.5-5.1); SODIUM,NA 136 mmol/L (136-145)
[2021-10-24 07:02] LABS: ESTIMATED GFR 87 mL/min (>60)
[2021-10-24] MEDS: Lactated Ringers 1,000 ML IV SCH ×2 (08:00→20:08)
[2021-10-24] MEDS ORDERED: Piperacillin/Tazobactam 4.5 GM in Sodium Chloride 0.9% 100 ML IV SCH (08:00)
[2021-10-24] MEDS: Piperacillin/Tazobactam 4.5 GM in Sodium Chloride 0.9% 100 ML IV SCH ×4 (08:15→20:06)
[2021-10-24] MEDS: Pantoprazole 40 MG in Sodium Chloride 0.9% 10 ML IVPUSH SCH (08:16)
[2021-10-24] MEDS: Heparin Sodium 5,000 Units/ML Vial SUBCUT SCH ×2 (12:33→20:06)
[2021-10-25] MEDS ORDERED: oxyCODONE 5 MG Tab PO PRN (00:37)
[2021-10-25] MEDS: Piperacillin/Tazobactam 4.5 GM in Sodium Chloride 0.9% 100 ML IV SCH ×2 (02:00→08:11)
[2021-10-25] MEDS: Heparin Sodium 5,000 Units/ML Vial SUBCUT SCH ×2 (03:36→12:24)
[2021-10-25 06:15] LABS: CARBON DIOXIDE,CO2 27.3 mmol/L (21.0-32.0); POTASSIUM,K 3.5 mmol/L (3.5-5.1)
[2021-10-25] MEDS: Pantoprazole 40 MG in Sodium Chloride 0.9% 10 ML IVPUSH SCH (08:10)
[2021-10-25] MEDS: Lactated Ringers 1,000 ML IV SCH (09:42)
== END 2021-10-25 13:20 | disposition home or self-care (01) ==
LOC: MW.MS 18:37
PROVIDERS: ADMIT Student in an Organized Health Care Education/Training Program; ATTEND Student in an Organized Health Care Education/Training Program
DX: K81.0 Acute cholecystitis (principal); E66.9 Obesity, unspecified; N39.0 Urinary tract infection, site not specified; R31.9 Hematuria, unspecified; J45.909 Unspecified asthma, uncomplicated; F41.9 Anxiety disorder, unspecified; Z79.899 Other long term (current) drug therapy; Z68.42 Body mass index [BMI] 45.0-49.9, adult
CPT/HCPCS: 36415; 80053; 82947; 83735; 84100; 85025; A9270-GY; C9113; J1644; J2270; J2543; J3490; J7120

== ENCOUNTER 2021-11-10 06:20 | Day surgery (SDC) | payer BC ==
[~2021-11-10 06:20] MED LIST: Albuterol 0.083% 2.5 MG/3 ML Neb Soln NEB PRN; HYDROmorphone 1 MG/ML Syringe IVPUSH PRN; Lactated Ringers 1,000 ML IV SCH; Metoclopramide 10 MG/2 ML SDV IVPUSH PRN; Morphine 4 MG/ML VIAL IVPUSH PRN; Naloxone 0.4 MG/ML SDV IVPUSH PRN; Ondansetron 4 MG/2 ML SDV IVPUSH PRN; cefOXitin 2 GM in Premix Bag 1 BAG IV ONE; fentaNYL 50 MCG/ML SDV IVPUSH PRN
[2021-11-10] MEDS ORDERED: Scopolamine 1.5 MG Transdermal Patch TRDERM ONE (07:00)
[2021-11-10] MEDS ORDERED: fentaNYL 100 MCG/2 ML SDV ONE (07:27)
[2021-11-10] MEDS ORDERED: Dexmedetomidine 200 MCG/2 ML SDV ONE (07:27)
[2021-11-10] MEDS ORDERED: Propofol 200 MG/20 ML SDV ONE (07:27)
[2021-11-10] MEDS ORDERED: Rocuronium Bromide 50 MG/5 ML Syringe ONE (07:28)
[2021-11-10] MEDS ORDERED: Water For Injection, Sterile 20 ML ONE (07:28)
[2021-11-10] MEDS ORDERED: Bupivacaine 0.25%/EPINEPHrine 1:200,000 10 ML SDV ONE (07:29)
[2021-11-10] MEDS ORDERED: Bupivacaine 0.25% 30 ML SDV ONE (07:29)
[2021-11-10] MEDS ORDERED: ceFAZolin 1 GM Vial ONE ×2 (07:32)
[2021-11-10] MEDS ORDERED: Bupivacaine 0.5% 30 ML SDV ONE (07:32)
[2021-11-10] MEDS ORDERED: Indocyanine Green 25 MG SDV ONE (07:39)
[2021-11-10] MEDS ORDERED: Esmolol 100 MG/10 ML SDV ONE (08:08)
[2021-11-10] MEDS ORDERED: Dexamethasone 4 MG/ML 5 ML MDV ONE (08:41)
[2021-11-10] MEDS ORDERED: fentaNYL 250 MCG/5 ML SDV ONE (09:31)
[2021-11-10] MEDS ORDERED: Ketorolac 30 MG/ML SDV ONE (09:37)
[2021-11-10] MEDS ORDERED: Ondansetron 4 MG/2 ML SDV ONE (09:37)
[2021-11-10] MEDS ORDERED: Sugammadex Sodium 200 MG/2 ML VIAL ONE ×2 (09:37→11:10)
[2021-11-10] MEDS ORDERED: Morphine 4 MG/ML VIAL IVPUSH PRN (11:16)
[2021-11-10] MEDS ORDERED: Acetaminophen/HYDROcodone 325-5 MG Tab PO PRN (11:16)
[2021-11-10] MEDS ORDERED: Ondansetron 4 MG/2 ML SDV IVPUSH PRN (11:17)
[2021-11-10] MEDS ORDERED: Lactated Ringers 1,000 ML IV SCH (11:30)
== END 2021-11-10 14:15 | disposition home or self-care (01) ==
LOC: MW.SDS 06:20
PROVIDERS: ATTEND Surgery
DX: K80.12 Calculus of gallbladder with acute and chronic cholecystitis without obstruction (principal); E66.9 Obesity, unspecified; Z98.890 Other specified postprocedural states; Z68.43 Body mass index [BMI] 50.0-59.9, adult
CPT/HCPCS: 47562; 81025; A9270; J0131; J0690; J0694; J1100; J1885; J2704; J3010; J3490; J7030; J7120; 00790; 64488; J2405